=== PATIENT | female | born 1985 | race Hispanic/Latino ===

== ENCOUNTER 2019-05-07 21:44 | Emergency (ER) | payer SELFPAY ==
[~2019-05-07] VITALS: Ht 170.2 cm; Wt 69.9 kg
--- OUTSIDE RECORDS SUMMARY | 2019-05-07 21:47 | XMS REPORT ---
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 Allergies, Adverse Reactions, Alerts This patient has no known allergies or adverse reactions. Medications This patient has no known medications. Encounters Start Date/Time End Date/Time Encounter Type Admission Type Attending [facility] [place] Facility Care Department Encounter ID 2018-06-08 00:00:00 2018-06-08 00:00:00 Outpatient [facility] [id number] 2018-05-09 00:00:00 2018-05-09 00:00:00 Outpatient [facility] [id number] 2018-05-07 08:36:03 2018-05-07 08:36:03 Outpatient [facility] [id number]
[2019-05-07] MEDS ORDERED: IBUPROFEN 600 MG TAB PO STA (22:09)
[2019-05-07] MEDS ORDERED: IBUPROFEN 600 MG TAB ONE (22:20)
== END 2019-05-07 22:32 | disposition home or self-care (01) ==
LOC: FSED 21:44
DX: S00.83XA Contusion of other part of head, initial encounter (principal); S00.11XA Contusion of right eyelid and periocular area, initial encounter; Y04.0XXA Assault by unarmed brawl or fight, initial encounter; Y92.89 Other specified places as the place of occurrence of the external cause
CPT/HCPCS: 99282